=== PATIENT | female | born 1935 | race Caucasian/White ===

== ENCOUNTER 2020-06-12 14:28 | Emergency (ER) | payer MEDICARE, OTHER, SELFPAY ==
--- NOTE | 2020-06-12 | XR_ITS ---
EXAMINATION: XR WRIST, RIGHT CLINICAL INFORMATION: There is deformity. COMPARISON: None TECHNIQUE: Three views of the right wrist. FINDINGS: There is osteopenia. There is a comminuted intra-articular fracture of the distal radius. Fracture extends from the metadiaphysis to the articular surface of bone with mild to moderate displacement of fracture fragments. There is mild reversal the radiocarpal angle. There is a fracture through the base of the ulnar styloid. The ulna styloid is displaced. IMPRESSION: Comminuted intra-articular fracture of the distal radius. Fracture through base of ulnar styloid
[2020-06-12 14:34] VITALS: BP 144/88; PULSE 74; RESP 16; TEMP 36.8; O2SAT 97; BMI 31.0
--- NOTE | 2020-06-12 14:48 | PC.NURSE ---
r wrist deformity s/p mechanical fall, denies synope,loc,headstrike. awaiting xray and provider eval.
--- NOTE | 2020-06-12 15:30 | XR_ITS ---
EXAMINATION: XR WRIST, RIGHT CLINICAL INFORMATION: Post reduction COMPARISON: 06/12/2020 TECHNIQUE: Two views of the right wrist. FINDINGS: Fine osseous and soft tissue detail are partially obscured by overlying casting material. Comminuted intra-articular distal radial fracture is again noted. Persistent impaction without significant angulation. Ulnar styloid fracture. The carpal rows are grossly aligned. IMPRESSION: Comminuted impacted intra-articular distal radial fracture again noted without significant angulation. Ulnar styloid fracture.
[2020-06-12 15:35] VITALS: BP 132/80; PULSE 70; RESP 18; O2SAT 96
[2020-06-12] MEDS: Lidocaine HCl 1 % MPF 5 ML VIAL 20 ML SUBCUT (15:55)
--- NOTE | 2020-06-12 16:00 | PC.NURSE ---
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 good tolerance of procedure. asking for water, provider agreeable.
--- NOTE | 2020-06-12 16:49 | ED.UPPEXIN ---
HPI - Extremity Injury (Upper) General Chief Complaint: Trauma <Deni Anguiano NP - Last Filed: 06/12/20 18:22> Stated Complaint: R WRIST PAIN/SWELLING/DEFORMITY S/P FALL OOB <Deni Anguiano NP - Last Filed: 06/12/20 18:22> Time Seen by Provider: 06/12/20 15:07 <Deni Anguiano NP - Last Filed: 06/12/20 18:22> Source: patient and EMS <Dnei Anguiano NP - Last Filed: 06/12/20 18:22> Mode of arrival: EMS <Deni Anguiano NP - Last Filed: 06/12/20 18:22> Limitations: no limitations <Deni Anguiano NP - Last Filed: 06/12/20 18:22> History of Present Illness HPI narrative: 84-year-old female presenting with mechanical fall after getting out of bed tripped or bedding landing on her right wrist with obvious deformity. She has a history of hypertension, bronchial asthma, dementia, hypothyroidism, depression, osteoarthritis migraine headaches and IBS with surgical history of cholecystectomy, total abdominal hysterectomy and colonoscopy. She denies any other pain or discomfort. States pain only in the right wrist where there is obvious deformity. She denies any prodromal symptoms. Her son was present. No prolonged down time. <Deni Anguiano NP - Last Filed: 06/12/20 18:22> MD complaint: injury to: right and wrist <Deni Anguiano NP - Last Filed: 06/12/20 18:22> Other Extremity Injury: right: wrist <Deni Anguiano NP - Last Filed: 06/12/20 18:22> Handedness: right <Deni Anguiano NP - Last Filed: 06/12/20 18:22> Place: home <Deni Anguiano NP - Last Filed: 06/12/20 18:22> Severity: mild <Deni Anguiano NP - Last Filed: 06/12/20 18:22> Relieving factors: immobilization <Deni Anguiano NP - Last Filed: 06/12/20 18:22> Exacerbating factors: movement of extremity <Deni Anguiano NP - Last Filed: 06/12/20 18:22> Context: fall <Deni Anguiano NP - Last Filed: 06/12/20 18:22> Related Data Home Medications: Home Medications Medication Instructions Recorded Confirmed Unobtainable 06/16/20 06/16/20 <Deni Anguiano NP - Last Filed: 06/12/20 18:22> Allergies/Adverse Reactions: Allergies Allergy/AdvReac Type Severity Reaction Status Date / Time corn [CORN] AdvReac Mild DIARRHEA Verified 06/16/20 13:53 <Deni Anguiano NP - Last Filed: 06/12/20 18:22> Review of Systems Review of Systems: Constitutional: No Weight loss, No Fever, No Chills, No Night Sweats, No Fatigue, No Malaise ENT/Mouth: No Hearing loss, No Ear Pain, No Nasal Congestion, No Sinus Pain, No Hoarseness, No sore throat, No Rhinorrhea, No Swallowing Difficulty Eyes: No Eye Pain, No Swelling, No Redness, No Foreign Body, No Discharge, No Vision Changes Cardiovascular: No Chest Pain, No SOB, No Dyspnea on Exertion, No Orthopnea, No Edema, No Palpitations Respiratory: No Cough, No Sputum, No Wheezing, No Smoke Exposure, No Dyspnea Gastrointestinal: No Nausea, No Vomiting, No Diarrhea, No Constipation, No abdominal Pain, No Hematochezia, No Melena Genitourinary: no irregular bleeding, No Dysuria, No Urinary Frequency, No Hematuria, No Urinary Incontinence, No Urgency, No Flank Pain, No Urinary Flow Changes, No Hesitancy Musculoskeletal: No joint pain, No Myalgias, No Joint Swelling Skin: No Skin Lesions, No rash Neuro: No Weakness, No Numbness, No Paresthesias, No Loss of Consciousness, No Dizziness, No Headache Psych: No Anxiety/Panic, No Depression, No SI/HI/AH/VH, No Social Issues, Heme/Lymph: No Bruising, No Bleeding,No Lymphadenopathy Endocrine: No Polyuria, No Polydipsia, No Temperature Intolerance <Deni Anguiano NP - Last Filed: 06/12/20 18:22> [facility] Past Medical History Attestation statement: The following information was validated with the patient. <Deni Anguiano NP - Last Filed: 06/12/20 18:22> Medical History: Medical History (Updated 06/17/20 @ 08:01 by Suzan Stiles PA-C) Dementia HTN (hypertension) <[facility] DEN Anguiano - Last Filed: 06/12/20 18:22> Social History Social History: Social History Alcohol intake: never Smoking Status: Never smoker <Deni DEN Anguiano - Last Filed: 06/12/20 18:22> Physical Exam Vital Signs: Vital Signs: Vital Signs Temp Pulse Resp BP Pulse Ox 06/12/20 15:35 70 18 132/80 96 06/12/20 14:34 98.2 F 74 16 144/88 H 97 Body Mass Index 31.0 Reviewed <Deni DEN Anguiano - Last Filed: 06/12/20 18:22> Vital Signs: Vital Signs Temp Pulse Resp BP Pulse Ox 06/12/20 15:35 70 18 132/80 96 06/12/20 14:34 98.2 F 74 16 144/88 H 97 Body Mass Index 31.0 <Alverto Myers MD - Last Filed: 06/17/20 15:32> Const: General: cooperative and healthy appearing; No acute distress or intoxicated appearing <Deni DEN Anguiano - Last Filed: 06/12/20 18:22> Nutritional Appearance: average body habitus <Denitomás Anguiano NP - Last Filed: 06/12/20 18:22> Orientation/consciousness: oriented to person, oriented to place and oriented to time <[facility] DEN Anguiano - Last Filed: 06/12/20 18:22> HENMT: Head: Yes normal to inspection <[facility] DEN Anguiano - Last Filed: 06/12/20 18:22> Ears: hearing grossly normal bilaterally <[facility] DEN Anguiano - Last Filed: 06/12/20 18:22> Eyes: General: appearance normal, both eyes and all related structures <Deni DEN Anguiano - Last Filed: 06/12/20 18:22> Visual Edwards: normal visual edwards by confrontation <[facility] DEN Anguiano - Last Filed: 06/12/20 18:22> Neck: Neck: Yes normal visual inspection and No tender <Edni DEN Anguiano - Last Filed: 06/12/20 18:22> Thyroid: Thyroid normal <[facility] Silvio QUILL REAMER - Last Filed: 06/12/20 18:22> Chest: Chest palpation & inspection: normal inspection of the chest <[facility] DEN Anguiano - Last Filed: 06/12/20 18:22> Resp: Effort & Inspection: normal respiratory effort <[facility] Silvio QUILL REAMER - Last Filed: 06/12/20 18:22> Cardio: Jugular venous distension: no JVD [facility] Last Filed: 06/12/20 18:22> GI: Inspection: Yes normal to inspection [facility] Last Filed: 06/12/20 18:22> Percussion: Yes normal to percussion [facility] Last Filed: 06/12/20 18:22> Auscultation: normal bowel sounds [facility] Last Filed: 06/12/20 18:22> : General: Yes no CVA tenderness <[facility] Silvio - Last Filed: 06/12/20 18:22> Back/Spine/Pelvis: Back: no CVA tenderness [facility] Last Filed: 06/12/20 18:22> Skin: General skin exam: no rashes or lesions noted <[facility] Silvio QUILL REAMER - Last Filed: 06/12/20 18:22> Neuro: General: oriented to person, oriented to place and oriented to time <[facility] Silvio QUILL REAMER - Last Filed: 06/12/20 18:22> Extrem: General: Yes normal to inspection <[facility] Silvio QUILL REAMER - Last Filed: 06/12/20 18:22> Course Course Course Narrative: I have reviewed the chart <Alverto Myers MD - Last Filed: 06/17/20 15:32> Consultations Consultation #1: Case discussed with orthopedics who reviewed x-rays. Recommendation for follow-up in office. Demographics sent. Follow-up care provided to hawa Jarquin at [phone]- She will be discharged home with sugar-tong splint and sling. Tylenol for pain. <[facility] DEN Anguiano - Last Filed: 06/12/20 18:22> Procedures Orthopedic Joint Reduction Joint #1: Side: right <Denitomás Anguiano NP - Last Filed: 06/12/20 18:22> Joint Reduction Location: wrist <Deni Anguiano NP - Last Filed: 06/12/20 18:22> Analgesia: hematoma block <Deni Anguiano NP - Last Filed: 06/12/20 18:22> Local Anesthesia: lidocaine 1% <Deni Anguiano NP - Last Filed: 06/12/20 18:22> Amount of anesthesic used (mL): 10 <Deni Anguiano NP - Last Filed: 06/12/20 18:22> Technique used: traction/counter-traction <Deni Anguiano NP - Last Filed: 06/12/20 18:22> Orthopedic Splinting/Casting Injury #1: Side: right <Deni Anguiano NP - Last Filed: 06/12/20 18:22> Upper Extremity Injury Location: wrist <Deni Anguiano NP - Last Filed: 06/12/20 18:22> Upper Extremity Immobilizer: sling/shoulder immobilizer and sugar tong splint <Deni Anguiano NP - Last Filed: 06/12/20 18:22> Lower Extremity Immobilizer: Kashif wrap <Deni Anguiano NP - Last Filed: 06/12/20 18:22> Discharge Plan Discharge Clinical Impression: Fracture of wrist <Deni Anguiano NP - Last Filed: 06/12/20 18:22> Patient Disposition: Home, Self-Care <Deni Anguiano NP - Last Filed: 06/12/20 18:22> Instructions: Wrist Fracture in Adults (ED), Closed Reduction (ED) <Deni Anguiano NP - Last Filed: 06/12/20 18:22> Additional Instructions: follow-up with orthopedic doctors in the next 4-5 days. Call for appointment Leave splint in place Ice/ elevate Tylenol for pain discomfort Return if any concerns or worsening symptoms otherwise follow up as instructed Thank you <Deni Anguiano NP - Last Filed: 06/12/20 18:22> Referrals: Marie Renner MD [Physician] - 5 days <Deni Anguiano NP - Last Filed: 06/12/20 18:22> Interventions: ED Discharge Assessment Last Done: 06/12/20 19:11 <Deni Anguiano NP - Last Filed: 06/12/20 18:22> Discharge Date/Time: 06/12/20 19:12 <Deni Anguiano NP - Last Filed: 06/12/20 18:22>
[2020-06-12] MEDS: Acetaminophen 325 MG TABLET 975 MG PO (18:27)
== END 2020-06-12 19:12 | disposition home or self-care (01) ==
PROVIDERS: Emergency Provider Emergency Medicine
DX: S52.511A Displaced fracture of right radial styloid process, initial encounter for closed fracture (principal); W01.0XXA Fall on same level from slipping, tripping and stumbling without subsequent striking against object, initial encounter; Y93.89 Activity, other specified; Y92.013 Bedroom of single-family (private) house as the place of occurrence of the external cause; Y99.9 Unspecified external cause status
CPT/HCPCS: 25605; 73100; 73110; 99284

== ENCOUNTER → 2020-06-16 13:15 | Outpatient (BNVA) | payer MEDICARE, OTHER, SELFPAY | PROVIDERS: PCP Internal Medicine; Referring Provider Internal Medicine; Visit Provider Physician Assistant | DX: S52.531A Colles' fracture of right radius, initial encounter for closed fracture (principal); F03.90 Unspecified dementia, unspecified severity, without behavioral disturbance, psychotic disturbance, mood disturbance, and anxiety | CPT/HCPCS: 25600; 99203 ==

== ENCOUNTER 2020-07-31 09:20 | Outpatient (REF) | payer MEDICARE, OTHER, SELFPAY ==
--- NOTE | 2020-07-31 09:20 | XR_ITS ---
EXAMINATION: XR WRIST, RIGHT CLINICAL INFORMATION: Follow-up Colles' fracture. COMPARISON: Radiographs, most recently 06/22/2020. TECHNIQUE: PA, lateral, and oblique views of the right wrist. FINDINGS: There is bony demineralization. A comminuted, impacted distal radial fracture is redemonstrated, with intra-articular extension of fracture fragments. There is good callus formation. Alignment appears stable. There is a stable displaced fracture of the ulnar styloid. There is mild associated callus formation. There is an ulnar positive variance. The soft tissue planes are unremarkable, without gas or foreign body. XR/XR wrist RT min 3V IMPRESSION: A comminuted, impacted distal right radial and displaced ulnar styloid fracture are redemonstrated, in stable alignment. There is good callus formation at the fracture sites.
== END 2020-07-31 09:21 | disposition home or self-care (01) ==
LOC: HO.HOSX 09:20
PROVIDERS: PCP Internal Medicine; Visit Provider Physician Assistant
DX: S52.501D Unspecified fracture of the lower end of right radius, subsequent encounter for closed fracture with routine healing (principal)
CPT/HCPCS: 73110; 99212

== ENCOUNTER 2021-05-17 08:57 | Emergency (ER) | payer MEDICARE, OTHER, SELFPAY ==
--- NOTE | 2021-05-17 | ECG_ITS ---
Test Reason : RIB PAIN Blood Pressure : / mmHG Vent. Rate : 087 BPM Atrial Rate : 087 BPM P-R Int : 184 ms QRS Dur : 142 ms QT Int : 402 ms P-R-T Axes : 078 034 -15 degrees QTc Int : 483 ms Sinus rhythm with Premature supraventricular complexes Right bundle branch block T wave abnormality, consider inferior ischemia Abnormal ECG When compared with ECG of 18-FEB-2017 18:59, Premature supraventricular complexes are now Present Referred By: Margaret Mondragon Electronically Signed By:SIENNA MARES
--- NOTE | ~2021-05-17 | XR_ITS ---
EXAMINATION: XR CHEST CLINICAL INFORMATION: Chest pain COMPARISON: Multiple prior examinations most recent chest January 2017 TECHNIQUE: Frontal view of the chest was obtained. FINDINGS: There is deformity of the left chest wall compatible with old left rib fractures some of which have healed some of which appear ununited. Old left clavicle fracture. Minimal increased interstitial markings which appear chronic. No focal consolidation. Cardiac silhouette mediastinum and pulmonary vascularity normal. XR/XR chest 1V IMPRESSION: No acute disease. Chronic changes stable compared to 2017
--- NOTE | ~2021-05-17 | CT_ITS ---
EXAMINATION: CT CHEST PE STUDY CLINICAL INFORMATION: Chest pain. Evaluate for pulmonary embolism. COMPARISON: Chest x-ray dated 05/17/2021. TECHNIQUE: Prior to contrast administration, localization images were obtained. After the administration of 65 and mL of intravenous Omnipaque 350, multidetector CT volume acquisition of the chest was performed. 3-D postprocessing was performed with multiplanar reconstructions and MIP images obtained at the acquisition workstation under concurrent physician supervision. This CT examination was performed using dose optimization techniques as appropriate, variously including the following: *Automated exposure control *Adjustment of mA and/or kV according to patient size (this includes techniques or standardized protocols for targeted exams where dose is matched to indication/reason for exam; i.e. extremities or head) *Use of iterative reconstruction technique DLP: 397 mGy-cm. FINDINGS: Pulmonary arteries: The bolus timing on this study was acceptable for visualization of the pulmonary arterial tree. There are no intraluminal pulmonary arterial filling defects present to suggest pulmonary embolism in the main pulmonary artery, right and left main pulmonary artery, lobar and segmental branches. Lungs: Dependent atelectasis in both lower lobes. No suspicious pulmonary nodules, masses, pleural effusion or pneumothorax. The central airways are patent. Aorta and heart: The heart is enlarged. No evidence of elevated right heart pressures. The ascending aorta is ectatic, measuring 3.9 cm in maximal AP diameter at the level of the right main pulmonary artery. Descending aorta at the same level is 3 cm and the aortic arch just beyond the takeoff of the left subclavian artery 3.2 cm. Mild atherosclerotic calcifications of the aorta and moderate to severe coronary artery calcification seen.. There is no pericardial effusion Lymphatic structures: There is no lymphadenopathy. Upper abdomen: Small retrocardiac hiatal hernia seen. Limited evaluation of the upper abdominal viscera demonstrates no other focal abnormality. Bones: Left rib cage deformity and multiple old healed fracture deformities seen, including ununited lateral eighth and seventh rib fractures. Fracture deformity of the left clavicle also seen. Diffuse osteopenia noted. Mild dorsal kyphosis and multilevel moderate vertebral spondylosis seen throughout the mid and lower thoracic spine. Deformity of the sternal manubrium seen, possibly due to old injury. CT/CT angio chest PE protocol IMPRESSION: 1. No evidence of pulmonary embolism. 2. Cardiomegaly and ectatic aorta. Moderate atherosclerotic calcifications, including coronary arteries. VTE: Negative
[2021-05-17 09:09] VITALS: BP 180/106; PULSE 88; RESP 20; TEMP 36.8; O2SAT 94; BMI 25.7
--- NOTE | 2021-05-17 09:26 | PC.NURSE ---
attempt to call son, no answer
--- NOTE | 2021-05-17 09:28 | ED.GENADULT ---
HPI - General Adult General Chief complaint: General Medical Stated complaint: rib pain x3 days Time Seen by Provider: 05/17/21 09:17 History of Present Illness HPI narrative: Patient is 85-year-old female history of dementia. Presents today with having right-sided chest pain. It is worse with deep breath worse with movement. No fever no chills no cough no congestion. Positive history of hypertension. History of dementia. Patient is unable to give detail. No diaphoresis. Given pain medication prior to arrival. Denies any history of diabetes, high cholesterol, smoking, mi. Related Data Home Medications Medication Instructions Recorded Confirmed alendronate 70 mg tablet 70 mg PO QWEEK 07/31/20 amlodipine 10 mg tablet 10 mg PO DAILY 07/31/20 donepezil 5 mg tablet 5 mg PO BEDTIME 07/31/20 duloxetine 60 mg capsule,delayed 60 mg PO DAILY 07/31/20 release levothyroxine 100 mcg tablet 100 mcg PO DAILY 07/31/20 lidocaine 5 % topical cream 1 appl TOPICAL BID PRN 07/31/20 lorazepam 0.5 mg tablet 0.5 mg PO DAILY PRN 07/31/20 omeprazole 20 mg capsule,delayed 20 mg PO DAILY 07/31/20 release sumatriptan 20 mg/actuation nasal 20 mg INTRANASAL Q2H PRN 07/31/20 spray topiramate 25 mg sprinkle capsule 25 mg PO DAILY 07/31/20 valsartan 80 mg tablet 80 mg PO DAILY 07/31/20 Previous Rx's Medication Instructions Recorded arm brace (Wrist Brace) #1 ea 07/31/20 Allergies Allergy/AdvReac Type Severity Reaction Status Date / Time corn [CORN] AdvReac Mild DIARRHEA Verified 07/31/20 09:26 Review of Systems Review of Systems: No fever no chills no diaphoresis Yes all other systems are reviewed and are negative [facility] Past Medical History Attestation statement: The following information was validated with the patient. Medical History Anemia Anxiety Dementia Depression Heart disease HTN (hypertension) Raynauds disease Thyroid disease Social History Social History Alcohol intake: never Smoked in Last 30 Days: No Use of substances other than those prescribed or required for medical reasons: No Advance Directives: Yes Advance Directives Information Provided: No Advance Directives on File: No Physical Exam Vital Signs: Vital Signs: Last Vital Signs Temp 98.2 F 05/17/21 09:09 Pulse 88 05/17/21 09:09 Resp 20 05/17/21 09:09 BP 180/106 H 05/17/21 09:09 Pulse Ox 94 05/17/21 09:09 Body Mass Index 25.7 Appearance: Alert. Oriented X3. No acute distress. Eyes: Pupils equal, round and reactive to light. ENT: Pharynx normal. Neck: Normal inspection. Neck supple. No lymph nodes noted. No crepitus CVS: Normal heart rate and rhythm. Pulses normal. Normal S1 and S2 Respiratory: No respiratory distress. Breath sounds normal. No Wheezing. No rales Abdomen: Soft and nontender. No rigidity. No distention. good BS x4 Skin: Skin warm and dry. Normal skin color. Normal skin turgor. Extremities: No lower extremity edema. Neurovascular intact to all extremities. No Lacerations. No Rash Neuro: Oriented X 3. No motor deficit. No sensory deficit. Moving all extermities. No slurred speech Medical Decision Making MDM Narrative Medical decision making narrative: Two sets of cardiac enzyme were negative. Patient's chest pain atypical for ACS. D-dimer was elevated. CTA of the chest showed no evidence of pneumonia. No pneumothorax. No PE. Pain likely musculoskeletal. Will have patient follow-up on an outpatient basis. In stable condition. Lab Data Result diagrams: 05/17/21 10:17 05/17/21 10:17 Labs: Lab Results 05/17/21 05/17/21 05/17/21 Range/Units 10:17 10:17 10:17 WBC 7.2 (4.8-10.8) X10*3/uL RBC 4.83 (4.20-5.50) X10*6/uL Hgb 14.0 (12.0-16.0) g/dl Hct 43.1 (37-47) % MCV 89.2 (80-98) fL MCH 29.0 (27.0-33.0) pg MCHC 32.5 (31.0-35.0) g/dl RDW 14.3 (11.0-16.0) % Plt Count 270 (160-400) X10*3/uL MPV 10.2 (9.4-12.3) fL Immature Gran % (Auto) 0.3 (0.0-0.4) % Neut % (Auto) 72.0 (45-73) % Lymph % (Auto) 15.7 L (20-40) % [place] % (Auto) 9.9 (2-11) % Eos % (Auto) 1.7 (0-4) % Baso % (Auto) 0.4 (0-2) % Lymph # (Auto) 1.1 L (1.2-4.9) X10*3/uL [place] # (Auto) 0.7 (0.1-1.2) X10*3/uL Eos # (Auto) 0.1 (0.0-0.4) X10*3/uL Baso # (Auto) 0.0 (0.0-0.2) X10*3/uL Abs Immat Gran (auto) 0.02 (0.00-0.03) X10*3/uL Absolute Neuts (auto) 5.2 (2.0-8.3) X10*3/uL Absolute Nucleated RBC 0.000 (0.0-0.012) X10*3/uL Nucleated RBC % (auto) 0.0 (0.0-0.2) /100WBC PT 10.5 (9.9-13.0) SEC INR 0.9 (0.9-1.1) D-Dimer 681 NG/ML Sodium 142 (135-145) mmol/L Potassium 3.8 (3.3-5.1) mmol/L Chloride 113 H (96-108) mmol/L Carbon Dioxide 21 L (22-29) mmol/L Anion Gap 12 (12-20) BUN 23 H (9-16) mg/dL Creatinine 1.12 (0.5-1.4) mg/dL Estim Creat Clear Calc 35.4 Estimated GFR 46 Random Glucose 128 H (60-115) mg/dL Calcium 9.0 (8.4-10.2) mg/dL Troponin I High Sens (<3.5-17.0) ng/L 05/17/21 05/17/21 Range/Units 10:17 13:23 WBC (4.8-10.8) X10*3/uL RBC (4.20-5.50) X10*6/uL Hgb (12.0-16.0) g/dl Hct (37-47) % MCV (80-98) fL MCH (27.0-33.0) pg MCHC (31.0-35.0) g/dl RDW (11.0-16.0) % Plt Count (160-400) X10*3/uL MPV (9.4-12.3) fL Immature Gran % (Auto) (0.0-0.4) % Neut % (Auto) (45-73) % Lymph % (Auto) (20-40) % [place] % (Auto) (2-11) % Eos % (Auto) (0-4) % Baso % (Auto) (0-2) % Lymph # (Auto) (1.2-4.9) X10*3/uL [place] # (Auto) (0.1-1.2) X10*3/uL Eos # (Auto) (0.0-0.4) X10*3/uL Baso # (Auto) (0.0-0.2) X10*3/uL Abs Immat Gran (auto) (0.00-0.03) X10*3/uL Absolute Neuts (auto) (2.0-8.3) X10*3/uL Absolute Nucleated RBC (0.0-0.012) X10*3/uL Nucleated RBC % (auto) (0.0-0.2) /100WBC PT (9.9-13.0) SEC INR (0.9-1.1) D-Dimer NG/ML Sodium (135-145) mmol/L Potassium (3.3-5.1) mmol/L Chloride (96-108) mmol/L Carbon Dioxide (22-29) mmol/L Anion Gap (12-20) BUN (9-16) mg/dL Creatinine (0.5-1.4) mg/dL Estim Creat Clear Calc Estimated GFR Random Glucose (60-115) mg/dL Calcium (8.4-10.2) mg/dL Troponin I High Sens 5.2 3.5 (<3.5-17.0) ng/L ECG Data Attestation: I personally reviewed and interpreted this ECG as follows: Interpretation: Sinus positive right bundle branch block positive T-wave inversion over the inferior leads anterior leads which are all old. Heart rate is approximately 80. Discharge Plan Discharge Clinical Impression: Chest pain Patient Disposition: Home, Self-Care Prescriptions: No Action (DME) Wrist Brace Misc See Rx Instructions .MEDSUPPLY Qty: 1 RF: 0 Referrals: Josefa Guevara MD [Primary Care Provider] - 2 days (Small risk of heart problems still exists. Worsening condition return to the emergency department.)
[2021-05-17 10:22] LABS: MANUAL DIFF FLAG NO
[2021-05-17 10:28] LABS: Basophils Percent Auto 0.4 % (0-2); Eosinophils Absolute Auto 0.1 X10*3/uL (0.0-0.4); Eosinophils Percent Auto 1.7 % (0-4); Hematocrit 43.1 % (37-47); Imm Gran Abs Auto 0.02 X10*3/uL (0.00-0.03); Imm Gran Pct Auto 0.3 % (0.0-0.4); Lymphocytes Absolute Auto 1.1 X10*3/uL (1.2-4.9); Lymphocytes Percent Auto 15.7 % (20-40); Mean Corpuscular HGB Conc 32.5 g/dl (31.0-35.0); Mean Corpuscular Volume 89.2 fL (80-98); Mean Platelet Volume 10.2 fL (9.4-12.3); Monocytes Absolute Auto 0.7 X10*3/uL (0.1-1.2); Monocytes Percent Auto 9.9 % (2-11); Neutrophils Absolute Auto 5.2 X10*3/uL (2.0-8.3); Platelet Count 270 X10*3/uL (160-400); Red Blood Count 4.83 X10*6/uL (4.20-5.50); Red Cell Distribution Width 14.3 % (11.0-16.0); White Blood Count 7.2 X10*3/uL (4.8-10.8)
[2021-05-17 10:29] LABS: INTERNATIONAL NORM RATIO 0.9 (0.9-1.1); Prothrombin Time 10.5 SEC (9.9-13.0)
[2021-05-17 10:32] LABS: D Dimer 681 NG/ML
[2021-05-17 10:36] LABS: Anion Gap 12 (12-20); Blood Urea Nitrogen 23 mg/dL (9-16); Carbon Dioxide 21 mmol/L (22-29); Chloride 113 mmol/L (96-108); Creatinine Clr Calc Pharmacy 35.4; Estimated Glomerular Filt Rate 46; Glucose Random 128 mg/dL (60-115); Potassium 3.8 mmol/L (3.3-5.1); Sodium 142 mmol/L (135-145)
[2021-05-17 10:42] LABS: Troponin-I High Sensitivity 5.2 ng/L (<3.5-17.0)
[2021-05-17] MEDS: iohexoL 350 MG/ML 100 ML INFUS..BTL IV (11:41)
[2021-05-17 13:46] LABS: Troponin-I High Sensitivity 3.5 ng/L (<3.5-17.0)
--- NOTE | 2021-05-17 15:09 | PC.NURSE ---
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
== END 2021-05-17 15:31 | disposition home or self-care (01) ==
PROVIDERS: Emergency Provider Emergency Medicine Emergency Medical Services; PCP Internal Medicine
DX: R07.9 Chest pain, unspecified (principal); R07.81 Pleurodynia; F03.90 Unspecified dementia, unspecified severity, without behavioral disturbance, psychotic disturbance, mood disturbance, and anxiety; Z79.899 Other long term (current) drug therapy
CPT/HCPCS: 36415; 71045; 71275; 80048; 84484; 85025; 85379; 85610; 93005; 99284; Q9967